=== PATIENT | female | born 1960 | race Caucasian/White ===

== ENCOUNTER 2019-09-05 19:00 | Outpatient (CLI) | payer OTHER ==
[2015-01-12 17:59] VITALS: BMI 31.0
[~2019-09-05 19:00] MED LIST: ENJUVIA1.25 MG PO; MELATONIN 3 MG1 TAB PO; PROTONIX40 MG PO; TIROSINT125 MCG PO
== END 2019-09-05 23:59 | disposition home or self-care (01) ==
LOC: D.MAMMO 19:00
PROVIDERS: ATTEND Family Medicine
DX: Z12.31 Encounter for screening mammogram for malignant neoplasm of breast (principal)

== ENCOUNTER 2019-10-01 08:00 | Outpatient (CLI) | payer OTHER ==
[2015-01-12 17:59] VITALS: BMI 31.0
== END 2019-10-01 23:59 | disposition home or self-care (01) ==
LOC: D.MAMMO 08:00
PROVIDERS: ATTEND Family Medicine
DX: R92.8 Other abnormal and inconclusive findings on diagnostic imaging of breast (principal)